=== PATIENT | male | born 1940 | race Caucasian/White ===

== ENCOUNTER → 2020-04-06 | Outpatient (CLI) | payer OTHER | LOC: SJCVC 14:23 | PROVIDERS: ATTEND Internal Medicine | DX: Z13.220 Encounter for screening for lipoid disorders (principal); R94.31 Abnormal electrocardiogram [ECG] [EKG]; R00.0 Tachycardia, unspecified; I49.8 Other specified cardiac arrhythmias; R00.2 Palpitations; I48.91 Unspecified atrial fibrillation; Z79.899 Other long term (current) drug therapy ==

== ENCOUNTER → 2020-05-05 | Outpatient (CLI) | payer OTHER | LOC: SJCVC 12:54 | PROVIDERS: ATTEND Internal Medicine | DX: I48.0 Paroxysmal atrial fibrillation (principal); R00.0 Tachycardia, unspecified; Z79.899 Other long term (current) drug therapy; Z87.891 Personal history of nicotine dependence ==